=== PATIENT | male | born 1995 | race Caucasian/White ===

== ENCOUNTER 2019-11-11 12:01 | Observation (INO) ==
[2019-11-11] MEDS ORDERED: SODIUM CHLORIDE 0.9% 1000ML 1,000 ML IV SCH (12:30)
[2019-11-11 13:11] LABS: Basophils # (auto) 0.02 K/uL (0-0.2); Basophils % (auto) 0.4 %; Eosinophils # (auto) 0.06 K/uL (0-0.5); Eosinophils % (auto) 1.2 %; Hematocrit (blood only) 35.5 % (42-52); Hemoglobin 11.9 g/dL (14.0-18.0); Immature Granulocytes # (auto) 0.01 K/uL (0.00-0.02); Immature Granulocytes % (auto) 0.2 %; Lymphocytes # (auto) 1.73 K/uL (1.2-3.4); Lymphocytes % (auto) 35.9 %; Mean Corpuscular Hemoglobin 30.1 pg (25-34); Mean Corpuscular Hgb Conc 33.5 g/dL (32-36); Mean Corpuscular Volume 89.9 fL (80-100); Mean Platelet Volume 11.1 fL (7.4-10.4); Monocytes # (auto) 0.36 K/uL (0.11-0.59); Monocytes % (auto) 7.5 %; Neutrophils # (auto) 2.64 K/uL (1.4-6.5); Neutrophils % (auto) 54.8 %; Platelet Count 213 K/uL (130-400); RDW Coefficient of Variation 12.8 % (11.5-14.5); RDW Standard Deviation 41.5 fL (36.4-46.3); Red Blood Count 3.95 M/uL (4.7-6.1); White Blood Count 4.82 K/uL (4.8-10.8)
[2019-11-11 13:23] LABS: Prothrombin Time 10.4 Seconds (9.0-12.0)
[2019-11-11] MEDS ORDERED: PANTOprazole 80 MG in DEXTROSE 5% 100 ML IV ONE (13:30)
[2019-11-11 13:31] LABS: Alanine Aminotransferase 24 U/L (12-78); Albumin Level 3.6 gm/dl (3.4-5.0); Aspartate Aminotransferase 6 U/L (15-37); BUN Creatinine Ratio 21.3 (10-20); Blood Urea Nitrogen 21 mg/dl (7-18); Calcium 8.6 mg/dl (8.5-10.1); Carbon Dioxide 29 mmol/L (21-32); Chloride 108 mmol/L (98-107); Creatinine Clr Calc Pharmacy 107.8 ml/min; Est GFR (African American) 127.9; Est GFR (Non-African American) 110.4; Glucose 94 mg/dl (70-99); Potassium 4.2 mmol/L (3.5-5.1); Sodium 141 mmol/L (136-145)
[2019-11-11 13:36] LABS: Albumin Globulin Ratio 1.2 (0.9-2); Alkaline Phosphatase 63 U/L (45-117); Bilirubin,Total 0.5 mg/dl (0.2-1); Globulin 2.9 gm/dl (2.5-4.0); Total Protein 6.5 gm/dl (6.4-8.2); Troponin I < 0.015 ng/ml (0-0.045)
--- NOTE | 2019-11-11 13:41 | History & Physical Report ---
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 Found to have hemoccult positive stool in the ER. Hgb=11.9, Hct=35.5. Patient is afebrile, hemodynamically stable and doing well with no complaints. -Observation to medical floor with telemetry monitoring -NPO -Maintain two large bore IVs -Check orthostatic VS x 1 -CBC q 8 hours, transfuse for active bleed, symptomatic anemia or Hgb < 7 -Protonix bolus and gtt initiated in ER, will continue -NSS at 80mL/hr x 2 liters -GI consultation appreciated F/E/N - NSS at 80mL/hr x 2 liters, electrolytes normal, NPO for now Ppx - Protonix bolus and gtt. Low risk for DVT, no ppx indicated Code - Full per discussion with patient Disposition - Observation to medical floor with telemetry History of Present Illness Chief Complaint: Dark, tarry stools Primary Care Provider: NO PCP Zheng Adorno is a pleasant 24yo C male with no significant past medical or surgical history. He developed abdominal pain, bloating and gas approximately two weeks ago. He was seen at [facility] and given a prescription for Protonix. Over the last 2-3 days he developed body aches, weakness, intermittent dizziness, SOB and black/tarry stools. He had some nausea with one episode of non-bloody/non-bilious emesis. He returned to [facility] and was subsequently sent to the ER. Otherwise, patient denies fevers, chest pain, diarrhea, dysuria. Afebrile, hemodynamically stable in ER. FOBT performed and found to be positive for occult blood. ER Course: Protonix bolus and drip, NSS x 1 liter Allergies Allergy/AdvReac Type Severity Reaction Status Date / Time milk Allergy Intermediate diarrhea ~ Unverified 11/11/19 13:44 churning stomach Home Medications Home Medications Medication Instructions Recorded Confirmed Type pantoprazole 40 mg PO QAM 11/11/19 11/11/19 History Past Med/Surg History Medical History No pertinent past medical history Surgical History No pertinent past surgical history Family History (Updated 11/11/19 @ 15:12 by Miladis Apodaca DO) Other No significant family history Social History (Updated 11/11/19 @ 15:12 by Miladis Apodaca DO) Preferred Language: Syriac Communication Ability: Effective Unclaimed Property Officer Required: No Beliefs That Will Affect Care: None Current Living Situation: Significant Other current occupational status: student Other Information That Helps Us Care for You: No Feels Safe at Home: Yes Safety Concerns: Feels Safe At This Time Smoking Status: Never smoker Hx Alcohol Use: Yes Alcohol type: beer and hard liquor Hx Substance Use: No Review of Systems Review of Systems: All systems reviewed & are unremarkable except as noted in HPI & below +epigastric discomfort +abdominal bloating Physical Exam Physical Exam: General: patient resting comfortably, NAD, non-toxic in appearance, AA&O x 4 Skin: warm, dry, intact, no rashes or lesions HEENT: NC/AT, PERRL, EOMI, anicteric sclera, conjunctiva without injection, external ear normal to inspection and nontender, nares patent, moist mucus membranes, dentition intact, no oropharyngeal lesions, neck supple, trachea midline, no LAD, no thyromegaly, no JVD Heart: +S1/S2, regular, no m/r/g Lungs: equal air entry bilaterally, no rales/rhonchi/wheezes Abd: +BS, soft, ND, +epigastric discomfort, no rebound/guarding/peritoneal signs, no masses/organomegaly/ascites Ext: warm, 2+ pulses in UE/LE bilaterally, no clubbing/cyanosis or edema Neuro: nonfocal, patient AA&O x 4, speech intact, no facial droop, moving all extremities on command with equal strength 5/5 Results & Data Vital Signs (Past 12 Hours) Vital Signs Temp Pulse Pulse Resp BP BP Pulse Ox 11/11/19 12:36 86 20 127/79 100 11/11/19 12:35 100 11/11/19 12:04 36.9 C 93 H 16 116/75 100 Laboratory Results Lab Results 11/11/19 11/11/19 11/11/19 Range/Units 12:38 12:38 12:38 WBC 4.82 (4.8-10.8) K/uL RBC 3.95 L (4.7-6.1) M/uL Hgb 11.9 L (14.0-18.0) g/dL Hct 35.5 L (42-52) % MCV 89.9 (80-100) fL MCH 30.1 (25-34) pg MCHC 33.5 (32-36) g/dL RDW Std Deviation 41.5 (36.4-46.3) fL RDW Coeff of Elder 12.8 (11.5-14.5) % Plt Count 213 (130-400) K/uL MPV 11.1 H (7.4-10.4) fL Immature Gran % (Auto) 0.2 % Neut % (Auto) 54.8 % Lymph % (Auto) 35.9 % [place] % (Auto) 7.5 % Eos % (Auto) 1.2 % Baso % (Auto) 0.4 % Immature Gran # (Auto) 0.01 (0.00-0.02) K/uL Neut # (Auto) 2.64 (1.4-6.5) K/uL Lymph # (Auto) 1.73 (1.2-3.4) K/uL [place] # (Auto) 0.36 (0.11-0.59) K/uL Eos # (Auto) 0.06 (0-0.5) K/uL Baso # (Auto) 0.02 (0-0.2) K/uL PT 10.4 (9.0-12.0) Seconds INR 1.0 (0.9-1.1) APTT 27.0 (21.0-31.0) Seconds PTT Ratio 1.0 Sodium 141 (136-145) mmol/L Potassium 4.2 (3.5-5.1) mmol/L Chloride 108 H (98-107) mmol/L Carbon Dioxide 29 (21-32) mmol/L Anion Gap 4.0 (3-11) BUN 21 H (7-18) mg/dl Creatinine 0.97 (0.6-1.4) mg/dl Est Cr Clr Drug Dosing 107.8 ml/min Est GFR ( Amer) 127.9 Est GFR (Non-Af Amer) 110.4 BUN/Creatinine Ratio 21.3 H (10-20) Glucose 94 (70-99) mg/dl Calcium 8.6 (8.5-10.1) mg/dl Total Bilirubin 0.5 (0.2-1) mg/dl AST 6 L (15-37) U/L ALT 24 (12-78) U/L Alkaline Phosphatase 63 (45-117) U/L Troponin I < 0.015 (0-0.045) ng/ml Total Protein 6.5 (6.4-8.2) gm/dl Albumin 3.6 (3.4-5.0) gm/dl Globulin 2.9 (2.5-4.0) gm/dl Albumin/Globulin Ratio 1.2 (0.9-2) Blood Type Antibody Screen 11/11/19 Range/Units 12:38 WBC (4.8-10.8) K/uL RBC (4.7-6.1) M/uL Hgb (14.0-18.0) g/dL Hct (42-52) % MCV (80-100) fL MCH (25-34) pg MCHC (32-36) g/dL RDW Std Deviation (36.4-46.3) fL RDW Coeff of Elder (11.5-14.5) % Plt Count (130-400) K/uL MPV (7.4-10.4) fL Immature Gran % (Auto) % Neut % (Auto) % Lymph % (Auto) % [place] % (Auto) % Eos % (Auto) % Baso % (Auto) % Immature Gran # (Auto) (0.00-0.02) K/uL Neut # (Auto) (1.4-6.5) K/uL Lymph # (Auto) (1.2-3.4) K/uL [place] # (Auto) (0.11-0.59) K/uL Eos # (Auto) (0-0.5) K/uL Baso # (Auto) (0-0.2) K/uL PT (9.0-12.0) Seconds INR (0.9-1.1) APTT (21.0-31.0) Seconds PTT Ratio Sodium (136-145) mmol/L Potassium (3.5-5.1) mmol/L Chloride (98-107) mmol/L Carbon Dioxide (21-32) mmol/L Anion Gap (3-11) BUN (7-18) mg/dl Creatinine (0.6-1.4) mg/dl Est Cr Clr Drug Dosing ml/min Est GFR ( Amer) Est GFR (Non-Af Amer) BUN/Creatinine Ratio (10-20) Glucose (70-99) mg/dl Calcium (8.5-10.1) mg/dl Total Bilirubin (0.2-1) mg/dl AST (15-37) U/L ALT (12-78) U/L Alkaline Phosphatase (45-117) U/L Troponin I (0-0.045) ng/ml Total Protein (6.4-8.2) gm/dl Albumin (3.4-5.0) gm/dl Globulin (2.5-4.0) gm/dl Albumin/Globulin Ratio (0.9-2) Blood Type O Negative Antibody Screen NEGATIVE ECG Additional Comments: The study shows NSR at 78bpm, normal axis and intervals, PA=398, QRS = 98, WIj=837. no acute ischemic changes Code Status & VTE Plan Code Status Full VTE Prophylaxis Plan VTE Prophylaxis will be ordered: No Reason for no VTE drug order: Treatment not indicated Reason for no VTE mechanical prophylaxis: Treatment not indicated PG Care Time/CCT Total # of Minutes Spent Total Time Spent with Patient: Total time spent is greater than 50% in coordination of care (as documented) at patient's floor/unit and/or counseling patient: Coding Level of Care Code 17318 Initial Inpt Care Lvl 2 Diagnoses UGIB (upper gastrointestinal bleed) K92.2
--- NOTE | 2019-11-11 14:44 | Emergency Department Note ---
Entered by Juana Thornton acting as a scribe for Ray Gilmore MD History of Present Illness General Chief complaint: Rectal Bleed Stated complaint: RECTAL BLEEDING Time Seen by Provider: 11/11/19 12:17 Source: patient History of Present Illness Onset (ago): day(s) 1 Location: abdomen (black stool) Pain Consistency: + other (episode) Maximum Pain Intensity: 0 Quality: + other (black stool) Relieved By: not by medication (antacids) Associated symptoms: + nausea/vomiting and + other (abdominal pain, black stool) Treatments prior to arrival: none The patient is a 24 year old male presenting to the Emergency Department complaining of an episode of black stool occurring 1 day ago. The patient reports that he had a bowel movement 1 day ago that was black in color. He states that he went to [facility] [employer] UP [employer]PER[employer] and was told that his stool did have blood in it. He explains that he began having abdominal pain 3 weeks ago but that it has resolved for the most part. He notes that he went to [facility] and [facility] for his abdominal pain and was prescribed antacids. He adds that antacids didnt improve his pain. The patient reports that he vomited once 3 days ago. He states that he doesnt know if there blood in emesis as he ate red cereal prior. 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 He denies Ibuprofen use, binge drinking alcohol and any pertinent medical or surgical history. Home Medications Home Medications Medication Instructions Recorded Confirmed Type pantoprazole 40 mg PO BID 30 Days #60 tab 11/14/19 Rx Allergies Allergy/AdvReac Type Severity Reaction Status Date / Time milk Allergy Intermediate diarrhea ~ Unverified 11/11/19 13:44 churning stomach Past Med/Surg History Medical History No pertinent past medical history Surgical History No pertinent past surgical history Family History Other No significant family history Social History Preferred Language: Kiswahili Communication Ability: Effective Facility Attendant Required: No Beliefs That Will Affect Care: None Current Living Situation: Significant Other current occupational status: student Feels Safe at Home: Yes Smoking Status: Never smoker Hx Alcohol Use: Yes Alcohol type: beer and hard liquor Hx Substance Use: No Review of Systems See HPI for pertinent positives & negatives. and A total of 10 systems reviewed and were otherwise negative Physical Exam Vital Signs Vital Signs - 24 hr 11/11/19 12:04 11/11/19 12:33 11/11/19 12:35 Temperature 36.9 C Temperature Source Oral Pulse Rate 93 H 87 Pulse Rate [Right Finger] Pulse Rate from SpO2 Sensor 86 Respiratory Rate 16 21 Blood Pressure 116/75 127/79 Blood Pressure [Right Arm] Blood Pressure Mean 88 82 Blood Pressure Mean [Right Arm] Pulse Oximetry 100 100 100 Oxygen Delivery Method Room Air Sepsis Recent Fever Within 48 Hours No Sepsis New/Unexplained Change in Mental Status No Sepsis Action Taken by Nursing No Action Required 11/11/19 12:36 11/11/19 13:00 11/11/19 13:30 Temperature Temperature Source Pulse Rate 78 91 H Pulse Rate [Right Finger] 86 Pulse Rate from SpO2 Sensor 77 87 Respiratory Rate 20 26 H 23 Blood Pressure 113/73 119/72 Blood Pressure [Right Arm] 127/79 Blood Pressure Mean 84 82 Blood Pressure Mean [Right Arm] 95 Pulse Oximetry 100 100 100 Oxygen Delivery Method Room Air Sepsis Recent Fever Within 48 Hours Sepsis New/Unexplained Change in Mental Status Sepsis Action Taken by Nursing GENERAL: Awake, alert, well-appearing, in no acute distress HENT: Normocephalic, atraumatic. Oropharynx unremarkable. EYES: Normal conjunctiva. Sclera non-icteric. NECK: Supple. No nuchal rigidity. FROM. No JVD. RESPIRATORY: Clear to auscultation. CARDIAC: Regular rate, normal rhythm. Extremities warm and well perfused. Pulses equal. ABDOMEN: Soft, non-distended. No tenderness to palpation. No rebound or guarding. No masses. RECTAL: Deferred. MUSCULOSKELETAL: Chest examination reveals no tenderness. The back is symmetrical on inspection without obvious abnormality. There is no CVA tenderness to palpation. No joint edema. LOWER EXTREMITIES: Calves are equal size bilaterally and non-tender. No edema. No discoloration. NEURO: Normal sensorium. No sensory or motor deficits noted. SKIN: No rash or jaundice noted. Course Course 1224: The patient was evaluated in room B4B, and a complete history and physical examination were performed. 1327: I discussed the patients case with Dr. Paulie SOTO hospitalist. She will evaluate the patient for further management. 1332: I updated the patient at this time. Administered Medications Discontinued Medications Fentanyl Citrate (Fentanyl Citrate) Confirm Administered Dose 100 mcg .ROUTE .STK-MED ONE Stop: 11/12/19 10:35 Last Admin: 11/12/19 12:58 Dose: Not Given Documented by: [id number] Sodium Chloride (Nss 1000ml) 1,000 mls @ 100 mls/hr IV .Q10H ROME Stop: 11/11/19 22:29 Last Infusion: 11/11/19 15:00 Dose: 0 mls/hr Documented by: [id number] Admin: 11/11/19 12:50 Dose: 100 mls/hr Documented by: [id number] Pantoprazole Sodium 80 mg/ (Dextrose) 120 mls @ 480 mls/hr IV NOW ONE Stop: 11/11/19 13:44 Last Infusion: 11/11/19 14:14 Dose: 0 mls/hr Documented by: [id number] Admin: 11/11/19 13:47 Dose: 480 mls/hr Documented by: [id number] Pantoprazole Sodium 40 mg/ (Dextrose) 100 mls @ 20 mls/hr IV Q5H ROME Stop: 11/14/19 13:30 Last Infusion: 11/14/19 15:00 Dose: 0 mls/hr Documented by: [id number] Admin: 11/14/19 11:29 Dose: 20 mls/hr Documented by: [id number] Infusion: 11/14/19 11:29 Dose: 20 mls/hr Documented by: [id number] Admin: 11/14/19 07:28 Dose: 20 mls/hr Documented by: [id number] Infusion: 11/14/19 07:16 Dose: 20 mls/hr Documented by: [id number] Admin: 11/14/19 02:16 Dose: 20 mls/hr Documented by: [id number] Infusion: 11/14/19 02:16 Dose: 0 mls/hr Documented by: [id number] Admin: 11/13/19 21:25 Dose: 20 mls/hr Documented by: [id number] Infusion: 11/13/19 21:05 Dose: 20 mls/hr Documented by: [id number] Admin: 11/13/19 16:05 Dose: 20 mls/hr Documented by: [id number] Infusion: 11/13/19 16:05 Dose: 20 mls/hr Documented by: [id number] Admin: 11/13/19 11:14 Dose: 20 mls/hr Documented by: [id number] Infusion: 11/13/19 10:52 Dose: 20 mls/hr Documented by: [id number] Admin: 11/13/19 05:52 Dose: 20 mls/hr Documented by: [id number] Infusion: 11/13/19 05:50 Dose: 20 mls/hr Documented by: [id number] Admin: 11/13/19 00:50 Dose: 20 mls/hr Documented by: [id number] Infusion: 11/13/19 00:50 Dose: 20 mls/hr Documented by: [id number] Admin: 11/12/19 19:56 Dose: 20 mls/hr Documented by: [id number] Infusion: 11/12/19 19:56 Dose: 20 mls/hr Documented by: [id number] Admin: 11/12/19 15:12 Dose: 20 mls/hr Documented by: [id number] Infusion: 11/12/19 14:45 Dose: 20 mls/hr Documented by: [id number] Admin: 11/12/19 09:45 Dose: 20 mls/hr Documented by: [id number] Infusion: 11/12/19 09:40 Dose: 20 mls/hr Documented by: [id number] Admin: 11/12/19 04:40 Dose: 20 mls/hr Documented by: [id number] Infusion: 11/12/19 04:40 Dose: 20 mls/hr Documented by: [id number] Admin: 11/11/19 23:48 Dose: 20 mls/hr Documented by: [id number] Infusion: 11/11/19 23:48 Dose: 20 mls/hr Documented by: [id number] Admin: 11/11/19 20:29 Dose: 20 mls/hr Documented by: [id number] Infusion: 11/11/19 20:11 Dose: 20 mls/hr Documented by: [id number] Admin: 11/11/19 15:11 Dose: 20 mls/hr Documented by: [id number] Sodium Chloride (Nss 1000ml) 1,000 mls @ 80 mls/hr IV .[id number] ROME Stop: 11/12/19 15:59 Last Infusion: 11/12/19 18:55 Dose: 0 mls/hr Documented by: [id number] Admin: 11/12/19 04:41 Dose: 80 mls/hr Documented by: [id number] Infusion: 11/12/19 04:35 Dose: 80 mls/hr Documented by: [id number] Admin: 11/11/19 16:05 Dose: 80 mls/hr Documented by: [id number] Polyethylene Glycol (Miralax Powder Packet) 17 gm PO ONE STA Stop: 11/14/19 12:13 Last Admin: 11/14/19 12:35 Dose: 17 gm Documented by: [id number] Propofol (Diprivan) Confirm Administered Dose 400 mg IV .STK-MED ONE Stop: 11/12/19 12:33 Last Admin: 11/12/19 12:58 Dose: Not Given Documented by: [id number] Medical Decision Making Differential Diagnosis Differential diagnosis: Etiologies such as diverticulosis, AVM, coagulopathy, colitis, inflammatory bowel disease, malignancy, Claire-Stewart tear, esophagitis, peptic ulcer disease, variceal bleed, gastritis, epistaxis, fissure, hemorrhoids, aswell as others were entertained. Medical Records Attestation: I reviewed the patient's medical records. Home Medications Current Medication List: was personally reviewed by me Laboratory Data Attestation: I reviewed the patient's lab results. Result diagrams: 11/14/19 06:10 11/14/19 06:10 Lab Results 11/11/19 11/11/19 11/11/19 Range/Units 12:38 12:38 12:38 WBC 4.82 (4.8-10.8) K/uL RBC 3.95 L (4.7-6.1) M/uL Hgb 11.9 L (14.0-18.0) g/dL Hct 35.5 L (42-52) % MCV 89.9 (80-100) fL MCH 30.1 (25-34) pg MCHC 33.5 (32-36) g/dL RDW Std Deviation 41.5 (36.4-46.3) fL RDW Coeff of Elder 12.8 (11.5-14.5) % Plt Count 213 (130-400) K/uL MPV 11.1 H (7.4-10.4) fL Immature Gran % (Auto) 0.2 % Neut % (Auto) 54.8 % Lymph % (Auto) 35.9 % [place] % (Auto) 7.5 % Eos % (Auto) 1.2 % Baso % (Auto) 0.4 % Immature Gran # (Auto) 0.01 (0.00-0.02) K/uL Neut # (Auto) 2.64 (1.4-6.5) K/uL Lymph # (Auto) 1.73 (1.2-3.4) K/uL [place] # (Auto) 0.36 (0.11-0.59) K/uL Eos # (Auto) 0.06 (0-0.5) K/uL Baso # (Auto) 0.02 (0-0.2) K/uL PT 10.4 (9.0-12.0) Seconds INR 1.0 (0.9-1.1) APTT 27.0 (21.0-31.0) Seconds PTT Ratio 1.0 Sodium 141 (136-145) mmol/L Potassium 4.2 (3.5-5.1) mmol/L Chloride 108 H (98-107) mmol/L Carbon Dioxide 29 (21-32) mmol/L Anion Gap 4.0 (3-11) BUN 21 H (7-18) mg/dl Creatinine 0.97 (0.6-1.4) mg/dl Est Cr Clr Drug Dosing 107.8 ml/min Est GFR ( Amer) 127.9 Est GFR (Non-Af Amer) 110.4 BUN/Creatinine Ratio 21.3 H (10-20) Glucose 94 (70-99) mg/dl Calcium 8.6 (8.5-10.1) mg/dl Total Bilirubin 0.5 (0.2-1) mg/dl AST 6 L (15-37) U/L ALT 24 (12-78) U/L Alkaline Phosphatase 63 (45-117) U/L Troponin I < 0.015 (0-0.045) ng/ml Total Protein 6.5 (6.4-8.2) gm/dl Albumin 3.6 (3.4-5.0) gm/dl Globulin 2.9 (2.5-4.0) gm/dl Albumin/Globulin Ratio 1.2 (0.9-2) Blood Type Antibody Screen 11/11/19 11/11/19 11/12/19 Range/Units 12:38 19:45 03:48 WBC 5.82 4.88 (4.8-10.8) K/uL RBC 3.43 L 3.37 L (4.7-6.1) M/uL Hgb 10.5 L 10.1 L (14.0-18.0) g/dL Hct 30.5 L 30.6 L (42-52) % MCV 88.9 90.8 (80-100) fL MCH 30.6 30.0 (25-34) pg MCHC 34.4 33.0 (32-36) g/dL RDW Std Deviation 41.9 42.7 (36.4-46.3) fL RDW Coeff of Elder 13.0 13.0 (11.5-14.5) % Plt Count 176 181 (130-400) K/uL MPV 10.5 H 10.8 H (7.4-10.4) fL Immature Gran % (Auto) 0.2 0.0 % Neut % (Auto) 60.3 44.0 % Lymph % (Auto) 31.1 46.1 % [place] % (Auto) 7.2 7.4 % Eos % (Auto) 1.0 2.3 % Baso % (Auto) 0.2 0.2 % Immature Gran # (Auto) 0.01 0.00 (0.00-0.02) K/uL Neut # (Auto) 3.51 2.15 (1.4-6.5) K/uL Lymph # (Auto) 1.81 2.25 (1.2-3.4) K/uL [place] # (Auto) 0.42 0.36 (0.11-0.59) K/uL Eos # (Auto) 0.06 0.11 (0-0.5) K/uL Baso # (Auto) 0.01 0.01 (0-0.2) K/uL PT (9.0-12.0) Seconds INR (0.9-1.1) APTT (21.0-31.0) Seconds PTT Ratio Sodium (136-145) mmol/L Potassium (3.5-5.1) mmol/L Chloride (98-107) mmol/L Carbon Dioxide (21-32) mmol/L Anion Gap (3-11) BUN (7-18) mg/dl Creatinine (0.6-1.4) mg/dl Est Cr Clr Drug Dosing ml/min Est GFR ( Amer) Est GFR (Non-Af Amer) BUN/Creatinine Ratio (10-20) Glucose (70-99) mg/dl Calcium (8.5-10.1) mg/dl Total Bilirubin (0.2-1) mg/dl AST (15-37) U/L ALT (12-78) U/L Alkaline Phosphatase (45-117) U/L Troponin I (0-0.045) ng/ml Total Protein (6.4-8.2) gm/dl Albumin (3.4-5.0) gm/dl Globulin (2.5-4.0) gm/dl Albumin/Globulin Ratio (0.9-2) Blood Type O Negative Antibody Screen NEGATIVE 11/12/19 11/12/19 Range/Units 03:48 12:10 WBC 7.75 (4.8-10.8) K/uL RBC 3.36 L (4.7-6.1) M/uL Hgb 10.2 L (14.0-18.0) g/dL Hct 30.7 L (42-52) % MCV 91.4 (80-100) fL MCH 30.4 (25-34) pg MCHC 33.2 (32-36) g/dL RDW Std Deviation 43.2 (36.4-46.3) fL RDW Coeff of Elder 13.0 (11.5-14.5) % Plt Count 170 (130-400) K/uL MPV 10.1 (7.4-10.4) fL Immature Gran % (Auto) 0.1 % Neut % (Auto) 76.8 % Lymph % (Auto) 15.5 % [place] % (Auto) 7.0 % Eos % (Auto) 0.5 % Baso % (Auto) 0.1 % Immature Gran # (Auto) 0.01 (0.00-0.02) K/uL Neut # (Auto) 5.95 (1.4-6.5) K/uL Lymph # (Auto) 1.20 (1.2-3.4) K/uL [place] # (Auto) 0.54 (0.11-0.59) K/uL Eos # (Auto) 0.04 (0-0.5) K/uL Baso # (Auto) 0.01 (0-0.2) K/uL PT (9.0-12.0) Seconds INR (0.9-1.1) APTT (21.0-31.0) Seconds PTT Ratio Sodium 141 (136-145) mmol/L Potassium 4.1 (3.5-5.1) mmol/L Chloride 111 H (98-107) mmol/L Carbon Dioxide 29 (21-32) mmol/L Anion Gap 1.0 L (3-11) BUN 12 (7-18) mg/dl Creatinine 0.92 (0.6-1.4) mg/dl Est Cr Clr Drug Dosing 113.7 ml/min Est GFR ( Amer) 136.4 Est GFR (Non-Af Amer) 117.6 BUN/Creatinine Ratio 13.2 (10-20) Glucose 90 (70-99) mg/dl Calcium 8.0 L (8.5-10.1) mg/dl Total Bilirubin (0.2-1) mg/dl AST (15-37) U/L ALT (12-78) U/L Alkaline Phosphatase (45-117) U/L Troponin I (0-0.045) ng/ml Total Protein (6.4-8.2) gm/dl Albumin (3.4-5.0) gm/dl Globulin (2.5-4.0) gm/dl Albumin/Globulin Ratio (0.9-2) Blood Type Antibody Screen ECG Data Attestation: I personally reviewed and interpreted this ECG as follows: Indication: + weakness and + other (black stool) Rate (beats per minute): 78 Rhythm: + normal sinus ECG Intervals/blocks: + Normal QT-c (QT-c 412. ) ECG [place]: + Normal ECG ST segments: no ST depression and no ST elevation ECG Findings: no PACs and no PVCs Blood Pressure Blood Pressure Findings: Elevated blood pressure Blood Pressure Disposition: further management by hospitalist [facility] Narrative This is a 24-year-old male who presents emergency department with melena. His hemoglobin was found to be 11. I did discuss the case with the hospitalist service who did agree to admit the patient. Patient was started on a Protonix bolus and drip here in the emergency department. Patient was in agreement with the treatment plan. I did offer to discuss this patient with his parents however the patient refused. Impression & Plan Melena, Acute blood loss anemia Discharge Plan Visit Data *Final* Discharge Date/Time: 11/11/19 14:18 Chief Complaint: Rectal Bleed Stated Complaint: RECTAL BLEEDING ED Provider: Ray Gilmore Discharge Problem: Melena, Acute blood loss anemia Patient Disposition: Admitted As Inpatient Condition: Good Discharge Instructions Interventions: ED Discharge Assessment Last Done: 11/11/19 14:18 The scribe's documentation has been prepared under my direction and personally reviewed by me in its entirety. I confirm that the note above accurately reflects all work, treatment, procedures, and medical decision making performed by me.
[2019-11-11] MEDS ORDERED: ONDANSETRON INJ 2 MG/ML 2 ML VIAL IV PRN (15:00)
[2019-11-11] MEDS: PANTOprazole 40 MG in DEXTROSE 5% 100 ML IV SCH ×3 (15:11→23:48)
[2019-11-11] MEDS: SODIUM CHLORIDE 0.9% 1000ML 1,000 ML IV SCH (16:05)
[2019-11-11 19:56] LABS: Basophils # (auto) 0.01 K/uL (0-0.2); Basophils % (auto) 0.2 %; Eosinophils # (auto) 0.06 K/uL (0-0.5); Hematocrit (blood only) 30.5 % (42-52); Hemoglobin 10.5 g/dL (14.0-18.0); Immature Granulocytes # (auto) 0.01 K/uL (0.00-0.02); Immature Granulocytes % (auto) 0.2 %; Lymphocytes # (auto) 1.81 K/uL (1.2-3.4); Lymphocytes % (auto) 31.1 %; Mean Corpuscular Hemoglobin 30.6 pg (25-34); Mean Corpuscular Hgb Conc 34.4 g/dL (32-36); Mean Corpuscular Volume 88.9 fL (80-100); Mean Platelet Volume 10.5 fL (7.4-10.4); Monocytes # (auto) 0.42 K/uL (0.11-0.59); Monocytes % (auto) 7.2 %; Neutrophils # (auto) 3.51 K/uL (1.4-6.5); Neutrophils % (auto) 60.3 %; Platelet Count 176 K/uL (130-400); RDW Standard Deviation 41.9 fL (36.4-46.3); Red Blood Count 3.43 M/uL (4.7-6.1); White Blood Count 5.82 K/uL (4.8-10.8)
[2019-11-12 04:19] LABS: Basophils # (auto) 0.01 K/uL (0-0.2); Basophils % (auto) 0.2 %; Eosinophils # (auto) 0.11 K/uL (0-0.5); Eosinophils % (auto) 2.3 %; Hematocrit (blood only) 30.6 % (42-52); Hemoglobin 10.1 g/dL (14.0-18.0); Lymphocytes # (auto) 2.25 K/uL (1.2-3.4); Lymphocytes % (auto) 46.1 %; Mean Corpuscular Volume 90.8 fL (80-100); Mean Platelet Volume 10.8 fL (7.4-10.4); Monocytes # (auto) 0.36 K/uL (0.11-0.59); Monocytes % (auto) 7.4 %; Neutrophils # (auto) 2.15 K/uL (1.4-6.5); Platelet Count 181 K/uL (130-400); RDW Standard Deviation 42.7 fL (36.4-46.3); Red Blood Count 3.37 M/uL (4.7-6.1); White Blood Count 4.88 K/uL (4.8-10.8)
[2019-11-12] MEDS: PANTOprazole 40 MG in DEXTROSE 5% 100 ML IV SCH ×4 (04:40→19:56)
[2019-11-12] MEDS: SODIUM CHLORIDE 0.9% 1000ML 1,000 ML IV SCH (04:41)
[2019-11-12 04:45] LABS: BUN Creatinine Ratio 13.2 (10-20); Creatinine Clr Calc Pharmacy 113.7 ml/min; Est GFR (African American) 136.4; Est GFR (Non-African American) 117.6; Potassium 4.1 mmol/L (3.5-5.1)
--- NOTE | 2019-11-12 09:15 | Gastrointestinal Consultation ---
Date of Consultation November 12, 2019 Assessment & Plan (1) Melena: Presumably 2/2 upper GI bleeding. H/H 10.1/30.6. -Keep NPO for EGD today. -Can continue IV Protonix gtt at present; pending results of EGD, will determine if patient can be converted to BID PPI therapy. -Follow H/H. Continue monitoring for further s/s of active GI bleeding. -Avoid NSAIDs. -Supportive care per primary team. Present on Admission?: Yes (2) Epigastric pain: See melena plan. Thank you for allowing us to participate in the care of this patient. If you should have any further questions or concerns, do not hesitate to contact us at [email or web address] [phone] or [phone]. Present on Admission?: Yes Supervising Physician Co-Signing Physician Notes Agree with NABEEL Spears as above Abd: Soft, NT, ND, +BS Continue current therapy Proceed with EGD now. History of Present Illness Reason for Consultation: Upper GI bleed, epigastric pain Attending Physician: Sharmin North MD History of Present Illness Zheng Adorno is a 24 yo male who presented to [facility] ED after experiencing several weeks of epigastric pain and a new onset of black tarry stool. The patient has no significant medical or surgical history. He denies family history of GI issues. He is a student at [employer] and reports he was in his usual state of health until 3 weeks ago. He developed epigastric abdominal pain and was reportedly seen at [facility]. He reports that he was told he had gas & bloating. His symptoms persisted, so he saw a provider at [facility]. He describes his pain as ranging from an aching to a sharp pain. This was worsened with spicy food. He reports that at its most severe he rates it as a 7/10. He reports he was started on Protonix on 11/07/2019 and was advised to notify them if he developed alarming or worsening symptoms. He reports that 2 days ago, he began noticing dark, tarry stools. He reports he notified [facility] and was asked to present to the ED. Upon presentation to the ED, his H/H was initially 11.9/35.5. After fluids overnight, it does appear to have decreased to 10.1/30.6. At present, he is on an IV PPI drip after receiving an initial bolus. He reports he is comfortable at present with 3/10 discomfort. He has not had further bowel movements since 11/10/2019. He denies NSAID use. He does not take any other medication. He avoids milk products as they trigger diarrhea, but this has been an ongoing issue. He has been kept NPO and is agreeable to endoscopic evaluation. Allergies Allergy/AdvReac Type Severity Reaction Status Date / Time milk Allergy Intermediate diarrhea ~ Unverified 11/11/19 13:44 churning stomach Home Medications Home Medications Medication Instructions Recorded Confirmed Type pantoprazole 40 mg PO QAM 11/11/19 11/11/19 History Patient History Medical History No pertinent past medical history Surgical History No pertinent past surgical history Family History Other No significant family history Social History (Updated 11/11/19 @ 15:12 by Miladis Apodaca DO) Preferred Language: Syrian Communication Ability: Effective Trolley Worker Required: No Beliefs That Will Affect Care: None Current Living Situation: Significant Other current occupational status: student Other Information That Helps Us Care for You: No Feels Safe at Home: Yes Safety Concerns: Feels Safe At This Time Smoking Status: Never smoker Hx Alcohol Use: Yes Alcohol type: beer and hard liquor Hx Substance Use: No Review of Systems Constitutional: no fever and no chills Eyes: no acute issues Ear, Nose, Mouth, Throat: no acute issues Respiratory: no cough Cardiovascular: no chest pain Gastrointestinal: + abdominal pain, + bloating and + melena; no heartburn, no dysphagia and no change in bowel habits Musculoskeletal: no acute issues Integumentary: no rash Neurologic: no dizziness Psychiatric: no acute complaints Endocrine: no fatigue Hematologic / Lymphatic: no acute issues Physical Exam Constitutional: WD/WN, vitals as above Eyes: PERRL, conjunctivae normal, anicteric sclerae ENMT: external ear and nose normal, oropharynx normal Neck: normal visual inspection Respiratory: normal respiratory effort, lungs clear to auscultation Cardiovascular: RRR, no murmur, no edema Gastrointestinal (Abdomen): normal bowel sounds, soft, nontender, no hepatosplenomegaly Musculoskeletal: no cyanosis or clubbing, extremities motor strength 5/5 Skin: no rashes, warm and dry Psychiatric: A+Ox3, euthymic affect Results & Data Vital Signs (Past 12 Hours) Vital Signs Temp Pulse Pulse Resp BP Pulse Ox 11/12/19 07:48 63 11/12/19 07:29 36.6 C 18 97 11/12/19 04:32 36.5 C 73 16 106/69 99 11/12/19 00:22 72 11/11/19 23:55 37.2 C 85 16 116/71 100 PG Care Time/CCT Total # of Minutes Spent Total Time Spent with Patient: Total time spent is greater than 50% in coordination of care (as documented) at patient's floor/unit and/or counseling patient: Coding Level of Care Code 29339 Inpt Consult Level 4 Diagnoses Melena K92.1 Epigastric pain R10.13
--- NOTE | 2019-11-12 10:12 | Anesthesiology Consultation ---
Date of Service November 12, 2019 Assessment & Plan (1) Encounter for pre-operative examination: Chart Review Chart Review: Acceptable Risk for Surgery and Patient NOT seen in Pre Admission Testing Consults Requested none History Surgery Operation Date: 11/12/19 10:35 Proposed Procedures p Esophagogastroduodenoscopy Dr Damian Pritchard Case, DO Height/Weight Height: 5 ft 6 in Weight: 71.4 kg Allergies Allergy/AdvReac Type Severity Reaction Status Date / Time milk Allergy Intermediate diarrhea ~ Unverified 11/11/19 13:44 churning stomach Medications Home Medications Medication Instructions Recorded Confirmed Last Taken pantoprazole 40 mg PO QAM 11/11/19 11/11/19 11/11/19 Active Medications Generic Name Dose Route Start Last Admin Trade Name Freq PRN Reason Stop Dose Admin Pantoprazole Sodium 40 mg/ 100 mls @ 20 mls/hr 11/11/19 13:45 11/12/19 09:45 Dextrose IV 11/14/19 23:59 20 mls/hr Q5H ROME Administration Sodium Chloride 1,000 mls @ 80 mls/hr 11/11/19 15:00 11/12/19 04:41 Nss 1000ml IV 11/12/19 15:59 80 mls/hr .[id number] ROME Administration NPO Date Last Intake of Fluids: 11/12/19 Last Intake of Fluids Comment: SIPS/CHIPS Date Last Intake of Solids: 11/12/19 Last Intake of Solids Comment: 0900 Past Medical History Medical History No pertinent past medical history Past Family History Family History Other No significant family history Past Surgical History Surgical History No pertinent past surgical history Social History Smoking Status: Never smoker Hx Alcohol Use: Yes Alcohol type: beer and hard liquor alcohol intake frequency: a few times a month Hx Substance Use: No Physical Exam Vital Signs Last Vital Signs Temp 36.6 C 11/12/19 07:29 Pulse 63 11/12/19 07:48 Resp 18 11/12/19 07:29 BP 106/69 11/12/19 04:32 Pulse Ox 97 11/12/19 07:29 Testing Laboratory Results 11/12/19 03:48 11/12/19 03:48 PT 10.4 Seconds (9.0-12.0) 11/11/19 12:38 INR 1.0 (0.9-1.1) 11/11/19 12:38 APTT 27.0 Seconds (21.0-31.0) 11/11/19 12:38 Blood Type O Negative 11/11/19 12:38 Antibody Screen NEGATIVE 11/11/19 12:38
[2019-11-12] MEDS ORDERED: ePHEDrine sulfate 50 MG/ML AMP IV PRN (10:14)
[2019-11-12] MEDS ORDERED: ATROPINE SULFATE 0.1 MG/ML 10ML SYR IV PRN (10:14)
[2019-11-12] MEDS ORDERED: fentaNYL citrate 100 MCG/2 ML VIAL ONE (10:34)
--- NOTE | 2019-11-12 11:10 | GI REPORT ---
Patient Name: Zheng Adorno Procedure Date: 11/12/2019 10:20 AM Date of : 1995 Admit Type: Inpatient Age: 24 Gender: Male Attending MD: Bertin Salgado DO Procedure: Upper GI endoscopy Providers: Bertin Salgado DO Referring MD: Bertin Salgado DO Indications: Acute post hemorrhagic anemia, Melena Medicines: Monitored Anesthesia Care Complications: No immediate complications. Estimated Blood Loss: Estimated blood loss: none. Procedure: Pre-Anesthesia Assessment: - Prior to the procedure, a History and Physical was performed, and patient medications and allergies were reviewed. The patient's tolerance of previous anesthesia was also reviewed. The risks and benefits of the procedure and the sedation options and risks were discussed with the patient. All questions were answered, and informed consent was obtained. Prior Anticoagulants: The patient has taken no previous anticoagulant or antiplatelet agents. ASA Grade Assessment: II - A patient with mild systemic disease. After reviewing the risks and benefits, the patient was deemed in satisfactory condition to undergo the procedure. After obtaining informed consent, the endoscope was passed under direct vision. Throughout the procedure, the patient's blood pressure, pulse, and oxygen saturations were monitored continuously. The Endoscope was introduced through the mouth, and advanced to the second part of duodenum. The upper GI endoscopy was accomplished without difficulty. The patient tolerated the procedure well. Findings: The esophagus was normal. One oozing cratered gastric ulcer with a visible vessel was found on the lesser curvature of the stomach. The lesion was 15 mm in largest dimension. Area was successfully injected with 3 mL of a 1:10,000 solution of epinephrine for hemostasis. Fulguration to ablate the lesion to prevent bleeding by heater probe was successful. Biopsies were taken with a cold forceps in the gastric antrum for Helicobacter pylori testing. The examined duodenum was normal. Impression: - Normal esophagus. - Oozing gastric ulcer with a visible vessel. Injected. Treated with a heater probe. - Normal examined duodenum. - Biopsies were taken with a cold forceps for Helicobacter pylori testing. Recommendation: - Resume previous diet. - Continue present medications, including protonix gtt for 72 hours. - Await pathology results. - Return to primary care physician as previously scheduled. Bertin Salgado DO 11/12/2019 11:10:16 AM This report has been signed electronically. Note Initiated On: 11/12/2019 10:20 AM Number of Addenda: 0 I attest to the content of the Intraoperative Record and orders documented therein, exceptions below {[id number]}
[2019-11-12 12:20] LABS: Basophils # (auto) 0.01 K/uL (0-0.2); Basophils % (auto) 0.1 %; Eosinophils # (auto) 0.04 K/uL (0-0.5); Eosinophils % (auto) 0.5 %; Hematocrit (blood only) 30.7 % (42-52); Hemoglobin 10.2 g/dL (14.0-18.0); Immature Granulocytes # (auto) 0.01 K/uL (0.00-0.02); Immature Granulocytes % (auto) 0.1 %; Lymphocytes % (auto) 15.5 %; Mean Corpuscular Hemoglobin 30.4 pg (25-34); Mean Corpuscular Hgb Conc 33.2 g/dL (32-36); Mean Corpuscular Volume 91.4 fL (80-100); Mean Platelet Volume 10.1 fL (7.4-10.4); Monocytes # (auto) 0.54 K/uL (0.11-0.59); Neutrophils # (auto) 5.95 K/uL (1.4-6.5); Neutrophils % (auto) 76.8 %; Platelet Count 170 K/uL (130-400); RDW Standard Deviation 43.2 fL (36.4-46.3); Red Blood Count 3.36 M/uL (4.7-6.1); White Blood Count 7.75 K/uL (4.8-10.8)
[2019-11-12] MEDS ORDERED: PROPOFOL IV EMULSION 10 MG/ML 20 ML VIAL IV ONE (12:32)
--- NOTE | 2019-11-12 15:07 | Anesthesiology Progress Note ---
Date of Service November 12, 2019 Anesthesia Post Procedure Vital Signs Vital Signs: Temp Pulse Pulse Resp BP Pulse Ox 11/12/19 12:42 36.7 C 59 L 18 123/77 99 11/12/19 11:32 78 18 102/63 100 11/12/19 11:17 78 18 117/63 97 11/12/19 11:02 78 16 100/43 L 96 11/12/19 10:16 37.1 C 86 16 140/77 99 11/12/19 07:48 63 11/12/19 07:29 36.6 C 18 97 11/12/19 04:32 36.5 C 73 16 106/69 99 11/12/19 00:22 72 11/11/19 23:55 37.2 C 85 16 116/71 100 11/11/19 19:36 36.9 C 85 18 119/68 97 Transfer of Care Handoff Completed per policy Notes Mental Status: alert / awake / arousable Patient Amnestic to Procedure: Yes Nausea / Vomiting: adequately controlled Pain: adequately controlled Airway Patency, RR, SpO2: stable & adequate BP & HR: stable & adequate Hydration State: stable & adequate Anesthetic Complications: no major complications apparent and Pt Satisfied with anesthetic care
--- NOTE | 2019-11-12 16:21 | Hospitalist Progress Note ---
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 Found to have hemoccult positive stool in the ER. Hgb=11.9, Hct=35.5. Afebrile, hemodynamically stable and doing well with no complaints. * GI Consultation-- appreciate input * EGD on 11/12 with 15mm oozing gastric ulcer found on lesser curvature of the stomach which was injected with epi, hemostasis with ablation of lesion by Dr. Salgado * Continue protonix gtt x 72 hours. Zofran prn * Clear liquid diet -- advanced to full liquids this evening * NSS @ 80 discontinued as patient taking adequate PO * Continue to monitor CBC * follow up biopsy performed for H. pylori testing * avoid all NSAIDs, ASA, EtOH (2) Acute blood loss anemia: * as above, secondary to GI bleed * now stabilized * follow CBC (3) Melena: * As above (4) Second degree atrioventricular block, Mobitz (type) I: * Initial EKG without abnormality * On telemetry, had what appears to be a Wenkebach around midnight -- repeated EKG with prolonged KS, evidence of 1st degree block. No history of syncope * KS interval shortens and has a 1:1 conduction with ambulation while on tele * Cardiology consult -- appreciate input * Lyme pending, no further evaluation needed as per Cardio if Lyme titer negative (5) DVT prophylaxis: * Low risk. Encourage ambulation, also with active GI bleeding, no chemical means of anticoagulation Dispo -- will need to continue protonix gtt 48-72 hours Supervising Physician Co-Signing Physician Notes PA Supervision Note: I did not personally see or examine the patient today, but I verified all kapadia points of DORIE Madden's assessment and plan with the following exceptions/additions: I discussed the case today with Dr. Salgado of GI and Dr. Hagan of Cardiology. Changes notated in A/P as above Subjective Patient evaluated this afternoon, as he was down having EGD this morning. Patient resting comfortably in bed, girlfriend and mother at bedside. States he has some abdominal discomfort, but no pain currently. States he had dark tarry stools x 2 on sunday. Had previously been started on protonix 40mg via [facility] on 11/07/19. Continues to have abdominal pain, n/v. No n/v today. Denies any ibuprofen or NSAID usage. Denies alcohol usage for the past two weeks. States that when he does drink he has 3-4 mixed drinks 1-2x/month. Denies drinking in excess. Discussed findings of EGD and need to continue protonix gtt. Discussed repeating EKG to see about any conduction abnormality. Denies any personal or family hx of WPW or other. Denies any at young age in family. Possibility to consult cardiology pending results of EKG. Patient agreeable. Patient and family's questions/concerns addressed. Agreeable to plan. Review of Systems Review of Systems: All systems reviewed & are unremarkable except as noted in HPI & below Constitutional: no fever and no chills Eyes: no diplopia and no spots in vision Ear, Nose, Mouth, Throat: no sore throat and no dysphagia Respiratory: no cough and no dyspnea Cardiovascular: no chest pain, no palpitations and no edema Gastrointestinal: no abdominal pain, no nausea and no vomiting Genitourinary: no dysuria and no urinary frequency Integumentary: no rash and no lesions Neurologic: no gait abnormality, no syncope and no headache(s) Physical Exam Constitutional: WD/WN, vitals as above Eyes: PERRL, conjunctivae normal, anicteric sclerae ENMT: external ear and nose normal, oropharynx normal Neck: trachea midline, no thyromegaly Respiratory: normal respiratory effort, lungs clear to auscultation Cardiovascular: RRR, no murmur, no edema Gastrointestinal (Abdomen): Inspection/Auscultation: normal bowel sounds Percussion/Palpation: + abdomen tender (minimally tender to palpation diffusely) and abdomen soft; no hepatosplenomegaly Musculoskeletal: no cyanosis or clubbing, extremities motor strength 5/5 Skin: no rashes, warm and dry Neurologic: PERRL, EOMI, accommodation nl, no face palsy, no dysarthria Psychiatric: A+Ox3, euthymic affect Lymphatic: no cervical or axillary lymphadenopathy Results & Data Vital Signs (Past 12 Hours) Vital Signs Temp Pulse Pulse Resp BP Pulse Ox 11/12/19 16:20 69 11/12/19 15:46 36.9 C 71 20 119/71 100 11/12/19 12:42 36.7 C 59 L 18 123/77 99 11/12/19 11:32 78 18 102/63 100 11/12/19 11:17 78 18 117/63 97 11/12/19 11:02 78 16 100/43 L 96 11/12/19 10:16 37.1 C 86 16 140/77 99 11/12/19 07:48 63 11/12/19 07:29 36.6 C 18 97 11/12/19 04:32 36.5 C 73 16 106/69 99 Laboratory Results 11/12/19 11/12/19 11/12/19 Range/Units 12:10 03:48 03:48 WBC 7.75 4.88 (4.8-10.8) K/uL RBC 3.36 L 3.37 L (4.7-6.1) M/uL Hgb 10.2 L 10.1 L (14.0-18.0) g/dL Hct 30.7 L 30.6 L (42-52) % MCV 91.4 90.8 (80-100) fL MCH 30.4 30.0 (25-34) pg MCHC 33.2 33.0 (32-36) g/dL RDW Std Deviation 43.2 42.7 (36.4-46.3) fL RDW Coeff of Elder 13.0 13.0 (11.5-14.5) % Plt Count 170 181 (130-400) K/uL MPV 10.1 10.8 H (7.4-10.4) fL Immature Gran % (Auto) 0.1 0.0 % Neut % (Auto) 76.8 44.0 % Lymph % (Auto) 15.5 46.1 % Bowman % (Auto) 7.0 7.4 % Eos % (Auto) 0.5 2.3 % Baso % (Auto) 0.1 0.2 % Immature Gran # (Auto) 0.01 0.00 (0.00-0.02) K/uL Neut # (Auto) 5.95 2.15 (1.4-6.5) K/uL Lymph # (Auto) 1.20 2.25 (1.2-3.4) K/uL Bowman # (Auto) 0.54 0.36 (0.11-0.59) K/uL Eos # (Auto) 0.04 0.11 (0-0.5) K/uL Baso # (Auto) 0.01 0.01 (0-0.2) K/uL Sodium 141 (136-145) mmol/L Potassium 4.1 (3.5-5.1) mmol/L Chloride 111 H (98-107) mmol/L Carbon Dioxide 29 (21-32) mmol/L Anion Gap 1.0 L (3-11) BUN 12 (7-18) mg/dl Creatinine 0.92 (0.6-1.4) mg/dl Est Cr Clr Drug Dosing 113.7 ml/min Est GFR ( Amer) 136.4 Est GFR (Non-Af Amer) 117.6 BUN/Creatinine Ratio 13.2 (10-20) Glucose 90 (70-99) mg/dl Calcium 8.0 L (8.5-10.1) mg/dl 11/11/19 Range/Units 19:45 WBC 5.82 (4.8-10.8) K/uL RBC 3.43 L (4.7-6.1) M/uL Hgb 10.5 L (14.0-18.0) g/dL Hct 30.5 L (42-52) % MCV 88.9 (80-100) fL MCH 30.6 (25-34) pg MCHC 34.4 (32-36) g/dL RDW Std Deviation 41.9 (36.4-46.3) fL RDW Coeff of Elder 13.0 (11.5-14.5) % Plt Count 176 (130-400) K/uL MPV 10.5 H (7.4-10.4) fL Immature Gran % (Auto) 0.2 % Neut % (Auto) 60.3 % Lymph % (Auto) 31.1 % Bowman % (Auto) 7.2 % Eos % (Auto) 1.0 % Baso % (Auto) 0.2 % Immature Gran # (Auto) 0.01 (0.00-0.02) K/uL Neut # (Auto) 3.51 (1.4-6.5) K/uL Lymph # (Auto) 1.81 (1.2-3.4) K/uL Bowman # (Auto) 0.42 (0.11-0.59) K/uL Eos # (Auto) 0.06 (0-0.5) K/uL Baso # (Auto) 0.01 (0-0.2) K/uL Sodium (136-145) mmol/L Potassium (3.5-5.1) mmol/L Chloride (98-107) mmol/L Carbon Dioxide (21-32) mmol/L Anion Gap (3-11) BUN (7-18) mg/dl Creatinine (0.6-1.4) mg/dl Est Cr Clr Drug Dosing ml/min Est GFR ( Amer) Est GFR (Non-Af Amer) BUN/Creatinine Ratio (10-20) Glucose (70-99) mg/dl Calcium (8.5-10.1) mg/dl PG Care Time/CCT Total # of Minutes Spent Total Time Spent with Patient: Total time spent is greater than 50% in coordination of care (as documented) at patient's floor/unit and/or counseling patient: Coding Level of Care Code 71796 Subseq Hosp Care Lvl 3 Diagnoses UGIB (upper gastrointestinal bleed) K92.2 Acute blood loss anemia D62 Melena K92.1 Second degree atrioventricular block, Mobitz (type) I I44.1 DVT prophylaxis Z29.9
--- NOTE | 2019-11-12 17:12 | Cardiology Consultation ---
Date of Consultation November 12, 2019 Assessment & Plan (1) Second degree atrioventricular block, Mobitz (type) I: I believe this form of heart block is likely physiologic. I agree this is somewhat unusual for a 24-year-old who is not more athletic. However, this is not represent a significant clinical concern at this point. It perhaps could be related to some increased vagal tone given his gastrointestinal symptoms, or possibly related to the sedation he was given earlier today. Clearly his conduction system or quite well and he conducts in a one-to-one fashion with a short [place] interval when ambulatory or more active. Except in the setting of significant anemia and gastrointestinal hemorrhage she does not endorse symptoms consistent with bradycardia or heart block such as dizziness, lightheadedness or syncope. He has normal exercise tolerance generally speaking. I do not believe this requires any additional evaluation. In the absence of new or persistent symptoms consistent with bradycardia I would not advocate any additional monitoring or cardiac evaluation. History of Present Illness Reason for Consultation: Heart block Requesting Physician: Mary Anne Attending Physician: Sharmin North MD History of Present Illness Patient is a 24-year-old gentleman without a significant past medical history who was admitted for epigastric discomfort and melena. Patient states that a few days prior to admission had been experience symptoms of some epigastric discomfort, dizziness and noted change in his stool. He did not endorse frequent use of nonsteroidal medication or significant alcohol abuse. He was admitted to the hospital and placed on telemetry. He was noted on telemetry to have episodes second-degree type 1 heart block. EKG also demonstrated first- degree heart block. Patient states that he did have some dizziness over the past few days. He did not endorse dizziness today. He has been most of his time in the hospital in bed. However, he was ambulatory to the bathroom and back without symptoms of dizziness or significant dyspnea. Prior to admission the patient had been an active individual. He is able to play racquet sports and ambulate around campus with a backpack. He does not endorse limiting symptoms of dyspnea or symptoms of chest pain. Generally does not have symptoms of dizziness or lightheadedness. He cannot ever recall suffering a syncopal episode. Allergies Allergy/AdvReac Type Severity Reaction Status Date / Time milk Allergy Intermediate diarrhea ~ Unverified 11/11/19 13:44 churning stomach Home Medications Home Medications Medication Instructions Recorded Confirmed Type pantoprazole 40 mg PO QAM 11/11/19 11/11/19 History Patient History Medical History No pertinent past medical history Surgical History No pertinent past surgical history Family History Other No significant family history Social History Preferred Language: Yi Communication Ability: Effective Quality Control Operator Required: No Beliefs That Will Affect Care: None Current Living Situation: Significant Other current occupational status: student Other Information That Helps Us Care for You: No Feels Safe at Home: Yes Safety Concerns: Feels Safe At This Time Smoking Status: Never smoker Hx Alcohol Use: Yes Alcohol type: beer and hard liquor Hx Substance Use: No Review of Systems Review of Systems: All systems reviewed & are unremarkable except as noted in HPI & below No recent fevers or chills Physical Exam Physical Exam: The patient is alert and oriented. Mood and affect appeared normal. He answered all questions appropriately. HEENT: Pupils are equal and reactive to light and accommodation. Extraocular movements are intact. The sclerae are anicteric. Neuro: Cranial nerves intact Neck: Patient's neck is supple. He has palpable carotid pulses bilaterally without bruits on auscultation. There is no evidence of jugular venous distention. The thyroid is not enlarged. Lungs: Clear to auscultation bilaterally. He has good air movement without use of accessory muscles. No rales wheezes or rhonchi. Cardiac: Heart demonstrates a regular rate and rhythm. Normal S1 and S2. No murmurs on examination. Pulses: The patient has palpable radial pulses bilaterally that are equal in intensity Extremities: There was no evidence of hypoperfusion. There is no cyanosis or clubbing. There is no edema. Skin: I did not appreciate any rashes on examination today. Results & Data Vital Signs (Past 12 Hours) Vital Signs Temp Pulse Pulse Resp BP Pulse Ox 11/12/19 16:20 69 11/12/19 15:46 36.9 C 71 20 119/71 100 11/12/19 12:42 36.7 C 59 L 18 123/77 99 11/12/19 11:32 78 18 102/63 100 11/12/19 11:17 78 18 117/63 97 11/12/19 11:02 78 16 100/43 L 96 11/12/19 10:16 37.1 C 86 16 140/77 99 11/12/19 07:48 63 11/12/19 07:29 36.6 C 18 97 Laboratory Results Abnormal Lab Results 11/11/19 11/12/19 11/12/19 19:45 03:48 03:48 WBC 5.82 4.88 RBC 3.43 L 3.37 L Hgb 10.5 L 10.1 L Hct 30.5 L 30.6 L MCV 88.9 90.8 MCH 30.6 30.0 MCHC 34.4 33.0 RDW Std Deviation 41.9 42.7 RDW Coeff of Elder 13.0 13.0 Plt Count 176 181 MPV 10.5 H 10.8 H Immature Gran % (Auto) 0.2 0.0 Neut % (Auto) 60.3 44.0 Lymph % (Auto) 31.1 46.1 [place] % (Auto) 7.2 7.4 Eos % (Auto) 1.0 2.3 Baso % (Auto) 0.2 0.2 Immature Gran # (Auto) 0.01 0.00 Neut # (Auto) 3.51 2.15 Lymph # (Auto) 1.81 2.25 [place] # (Auto) 0.42 0.36 Eos # (Auto) 0.06 0.11 Baso # (Auto) 0.01 0.01 Sodium 141 Potassium 4.1 Chloride 111 H Carbon Dioxide 29 Anion Gap 1.0 L BUN 12 Creatinine 0.92 Est Cr Clr Drug Dosing 113.7 Est GFR ( Amer) 136.4 Est GFR (Non-Af Amer) 117.6 BUN/Creatinine Ratio 13.2 Glucose 90 Calcium 8.0 L 11/12/19 12:10 WBC 7.75 RBC 3.36 L Hgb 10.2 L Hct 30.7 L MCV 91.4 MCH 30.4 MCHC 33.2 RDW Std Deviation 43.2 RDW Coeff of Elder 13.0 Plt Count 170 MPV 10.1 Immature Gran % (Auto) 0.1 Neut % (Auto) 76.8 Lymph % (Auto) 15.5 [place] % (Auto) 7.0 Eos % (Auto) 0.5 Baso % (Auto) 0.1 Immature Gran # (Auto) 0.01 Neut # (Auto) 5.95 Lymph # (Auto) 1.20 [place] # (Auto) 0.54 Eos # (Auto) 0.04 Baso # (Auto) 0.01 Sodium Potassium Chloride Carbon Dioxide Anion Gap BUN Creatinine Est Cr Clr Drug Dosing Est GFR ( Amer) Est GFR (Non-Af Amer) BUN/Creatinine Ratio Glucose Calcium PG Care Time/CCT Total # of Minutes Spent Total Time Spent with Patient: Total time spent is greater than 50% in coordination of care (as documented) at patient's floor/unit and/or counseling patient: Coding Level of Care Code 73583 Inpt Consult Level 4 Diagnoses Second degree atrioventricular block, Mobitz (type) I I44.1
--- NOTE | 2019-11-12 17:37 | Electrocardiogram Report ---
Test Reason : Blood Pressure : / mmHG Vent. Rate : 078 BPM Atrial Rate : 078 BPM P-R Int : 188 ms QRS Dur : 098 ms QT Int : 362 ms P-R-T Axes : 052 073 051 degrees QTc Int : 412 ms Normal sinus rhythm Normal ECG No previous ECGs available Confirmed by Roberto Hagan ([id number]) on 11/12/2019 5:36:56 PM Referred By: REFERRED SELF Confirmed By:Meng Hagan
--- NOTE | 2019-11-12 17:57 | Electrocardiogram Report ---
Test Reason : Blood Pressure : / mmHG Vent. Rate : 067 BPM Atrial Rate : 067 BPM P-R Int : 256 ms QRS Dur : 094 ms QT Int : 378 ms P-R-T Axes : 073 052 038 degrees QTc Int : 399 ms Sinus rhythm with 1st degree A-V block Otherwise normal ECG When compared with ECG of 11-NOV-2019 12:30, (unconfirmed) OH interval has increased Confirmed by Roberto Hagan ([id number]) on 11/12/2019 5:57:01 PM Referred By: REFERRED SELF Confirmed By:Meng Hagan
[2019-11-13] MEDS: PANTOprazole 40 MG in DEXTROSE 5% 100 ML IV SCH ×5 (00:50→21:25)
[2019-11-13 06:05] LABS: Basophils # (auto) 0.02 K/uL (0-0.2); Basophils % (auto) 0.4 %; Eosinophils # (auto) 0.14 K/uL (0-0.5); Hematocrit (blood only) 31.9 % (42-52); Hemoglobin 10.5 g/dL (14.0-18.0); Lymphocytes # (auto) 1.74 K/uL (1.2-3.4); Lymphocytes % (auto) 37.4 %; Mean Corpuscular Hemoglobin 30.1 pg (25-34); Mean Corpuscular Hgb Conc 32.9 g/dL (32-36); Mean Corpuscular Volume 91.4 fL (80-100); Mean Platelet Volume 11.1 fL (7.4-10.4); Monocytes # (auto) 0.41 K/uL (0.11-0.59); Monocytes % (auto) 8.8 %; Neutrophils # (auto) 2.34 K/uL (1.4-6.5); Neutrophils % (auto) 50.4 %; Platelet Count 195 K/uL (130-400); RDW Coefficient of Variation 13.1 % (11.5-14.5); RDW Standard Deviation 42.9 fL (36.4-46.3); Red Blood Count 3.49 M/uL (4.7-6.1); White Blood Count 4.65 K/uL (4.8-10.8)
[2019-11-13 06:58] LABS: Albumin Globulin Ratio 1.2 (0.9-2); Albumin Level 3.1 gm/dl (3.4-5.0); BUN Creatinine Ratio 6.3 (10-20); Bilirubin,Total 0.5 mg/dl (0.2-1); Calcium 8.4 mg/dl (8.5-10.1); Creatinine Clr Calc Pharmacy 103.5 ml/min; Est GFR (African American) 121.8; Est GFR (Non-African American) 105.1; Globulin 2.6 gm/dl (2.5-4.0); Potassium 4.1 mmol/L (3.5-5.1); Total Protein 5.7 gm/dl (6.4-8.2)
[2019-11-13 07:08] LABS: Lyme Ab IgG w/WB Rflx Negative (Negative); Lyme Ab IgM w/WB Rflx Negative (Negative)
--- NOTE | 2019-11-13 10:22 | Gastroenterology Progress Note ---
Date of Service November 13, 2019 Assessment & Plan (1) Gastric ulcer: -Continue IV Protonix gtt for a total of 72 hours after which can convert to Protonix 40 mg BID. -EGD in 8 weeks to assess healing; Our office will arrange this as well as subsequent follow-up. -Continue to monitor H/H. -Await pathology results. Thank you for allowing us to participate in the care of this patient. If you should have further questions or concerns, do not hesitate to call extension [phone] or [phone]. Supervising Physician Co-Signing Physician Notes Agree with NABEEL Spears as above Abd: Soft, NT, ND, +BS Continue current therapy including Protonix gtt for 72 hours, then transition to Protonix 40 mg PO BID Subjective Patient is a 24 yo male with anemia and melena who underwent an EGD on 11/12/2019 that indicated a gastric ulcer with visible vessel. He continues on a PPI drip. He feels well today. H/H stable at 10.5/31.9. He denies further melena. He is tolerating diet advancement. Pathology from EGD is pending. No new complaints at present. Review of Systems Constitutional: no fever and no chills Respiratory: no cough and no dyspnea Cardiovascular: no chest pain Gastrointestinal: no abdominal pain and no heartburn Integumentary: no rash Physical Exam Constitutional: WD/WN, vitals as above Respiratory: normal respiratory effort, lungs clear to auscultation Cardiovascular: RRR, no murmur, no edema Gastrointestinal (Abdomen): normal bowel sounds, soft, nontender, no hepatosplenomegaly Skin: no rashes, warm and dry Psychiatric: A+Ox3, euthymic affect Results & Data Vital Signs (Past 12 Hours) Vital Signs Temp Pulse Pulse Pulse Resp BP BP 11/13/19 07:30 36.9 C 65 18 118/68 11/13/19 02:34 36.5 C 81 18 119/72 11/13/19 00:07 74 11/12/19 22:34 36.8 C 76 16 115/71 Pulse Ox 11/13/19 07:30 95 11/13/19 02:34 96 11/13/19 00:07 11/12/19 22:34 98 PG Care Time/CCT Total # of Minutes Spent Total Time Spent with Patient: Total time spent is greater than 50% in coordination of care (as documented) at patient's floor/unit and/or counseling patient: Coding Level of Care Code 84141 Subs Hosp Care [facility] 3 Diagnoses Gastric ulcer K25.0 Gastric ulcer chronicity: acute Gastric ulcer complication status: with hemorrhage (1) Gastric ulcer Gastric ulcer chronicity: acute Gastric ulcer complication status: with hemorrhage Qualified Code(s): K25.0 - Acute gastric ulcer with hemorrhage
--- NOTE | 2019-11-13 12:22 | Hospitalist Progress Note ---
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 Found to have hemoccult positive stool in the ER. Hgb=11.9, Hct=35.5. Afebrile, hemodynamically stable and doing well with no complaints. * GI Consultation-- appreciate input * EGD on 11/12 with 15mm oozing gastric ulcer found on lesser curvature of the stomach which was injected with epi, hemostasis with ablation of lesion by Dr. Salgado * Continue protonix gtt x 72 hours --> third day 11/14. Zofran prn * Tolerated full liquid diet -- advanced at lunch to regular diet as patient without further melena or n/v. * Continue to monitor CBC -- H/H actually improved today to 10.5/31.9 from low of 10.1/30.6 on 11/12/19 * Follow up biopsy performed for H. pylori testing * Avoid all NSAIDs, ASA, EtOH (2) Acute blood loss anemia: * as above, secondary to GI bleed * now stabilized * follow CBC (3) Melena: * As above (4) Second degree atrioventricular block, Mobitz (type) I: * Initial EKG without abnormality * On telemetry, had what appears to be a Wenkebach around midnight 11/12 -- repeated EKG with prolonged OH, evidence of 1st degree block. No history of syncope * OH interval shortens and has a 1:1 conduction with ambulation while on tele * Cardiology consult -- appreciate input * Lyme negative --> no further evaluation needed as per Cardio - see cardiology note (5) DVT prophylaxis: * Low risk. Encourage ambulation, also with active GI bleeding, no chemical means of anticoagulation Dispo -- will need to continue protonix gtt with posible transition tomorrow and repeat EGD in 8 weeks to assess healing Supervising Physician Co-Signing Physician Notes DORIE Supervision Note: I did not personally see or examine the patient today, but I verified all kapadia points of DORIE Madden's assessment and plan with the following exceptions/additions: None Subjective Patient evaluated at bedside this morning. Feeling better. No further episodes of melena. Denies any nausea or vomiting. Denies abdominal pain. States he has not had a bowel movement since he was admitted. Discussed continuing protonix drip for total of 72 hours before transitioning to oral. Discussed conversation with cardiology and no further work up at this time. All questions/concerns answered. Review of Systems Review of Systems: All systems reviewed & are unremarkable except as noted in HPI & below Constitutional: no fever and no chills Ear, Nose, Mouth, Throat: no sore throat and no dysphagia Respiratory: no cough and no dyspnea Cardiovascular: no chest pain, no palpitations and no edema Gastrointestinal: + constipation; no abdominal pain, no nausea and no vomiting Genitourinary: no dysuria and no urinary frequency Integumentary: no rash and no lesions Physical Exam Constitutional: WD/WN, vitals as above Eyes: PERRL, conjunctivae normal, anicteric sclerae ENMT: external ear and nose normal, oropharynx normal Neck: trachea midline, no thyromegaly Respiratory: normal respiratory effort, lungs clear to auscultation Cardiovascular: RRR, no murmur, no edema Gastrointestinal (Abdomen): Inspection/Auscultation: normal bowel sounds Percussion/Palpation: abdomen soft; no hepatosplenomegaly Musculoskeletal: no cyanosis or clubbing, extremities motor strength 5/5 Skin: no rashes, warm and dry Neurologic: PERRL, EOMI, accommodation nl, no face palsy, no dysarthria Psychiatric: A+Ox3, euthymic affect Lymphatic: no cervical or axillary lymphadenopathy Results & Data ([facility]) Vital Signs (Past 12 Hours) Vital Signs Temp Pulse Pulse Pulse Resp BP BP 11/13/19 08:00 58 L 11/13/19 07:30 36.9 C 65 18 118/68 11/13/19 02:34 36.5 C 81 18 119/72 Pulse Ox 11/13/19 08:00 11/13/19 07:30 95 11/13/19 02:34 96 Laboratory Results 11/13/19 11/13/19 11/13/19 Range/Units 05:22 05:22 05:22 WBC 4.65 L (4.8-10.8) K/uL RBC 3.49 L (4.7-6.1) M/uL Hgb 10.5 L (14.0-18.0) g/dL Hct 31.9 L (42-52) % MCV 91.4 (80-100) fL MCH 30.1 (25-34) pg MCHC 32.9 (32-36) g/dL RDW Std Deviation 42.9 (36.4-46.3) fL RDW Coeff of Elder 13.1 (11.5-14.5) % Plt Count 195 (130-400) K/uL MPV 11.1 H (7.4-10.4) fL Immature Gran % (Auto) 0.0 % Neut % (Auto) 50.4 % Lymph % (Auto) 37.4 % [place] % (Auto) 8.8 % Eos % (Auto) 3.0 % Baso % (Auto) 0.4 % Immature Gran # (Auto) 0.00 (0.00-0.02) K/uL Neut # (Auto) 2.34 (1.4-6.5) K/uL Lymph # (Auto) 1.74 (1.2-3.4) K/uL [place] # (Auto) 0.41 (0.11-0.59) K/uL Eos # (Auto) 0.14 (0-0.5) K/uL Baso # (Auto) 0.02 (0-0.2) K/uL Sodium 143 (136-145) mmol/L Potassium 4.1 (3.5-5.1) mmol/L Chloride 110 H (98-107) mmol/L Carbon Dioxide 28 (21-32) mmol/L Anion Gap 5.0 (3-11) BUN 6 L D (7-18) mg/dl Creatinine 1.01 (0.6-1.4) mg/dl Est Cr Clr Drug Dosing 103.5 ml/min Est GFR ( Amer) 121.8 Est GFR (Non-Af Amer) 105.1 BUN/Creatinine Ratio 6.3 L (10-20) Glucose 90 (70-99) mg/dl Calcium 8.4 L (8.5-10.1) mg/dl Total Bilirubin 0.5 (0.2-1) mg/dl AST 8 L (15-37) U/L ALT 28 (12-78) U/L Alkaline Phosphatase 60 (45-117) U/L Total Protein 5.7 L (6.4-8.2) gm/dl Albumin 3.1 L (3.4-5.0) gm/dl Globulin 2.6 (2.5-4.0) gm/dl Albumin/Globulin Ratio 1.2 (0.9-2) Lyme Disease IgG Ab Negative (Negative) Lyme Disease IgM Ab Negative (Negative) PG Care Time/CCT Total # of Minutes Spent Total Time Spent with Patient: Total time spent is greater than 50% in coordination of care (as documented) at patient's floor/unit and/or counseling patient: Coding Level of Care Code 57396 Subseq Hosp Care Lvl 2 Diagnoses UGIB (upper gastrointestinal bleed) K92.2 Acute blood loss anemia D62 Melena K92.1 Second degree atrioventricular block, Mobitz (type) I I44.1 DVT prophylaxis Z29.9
[2019-11-14] MEDS: PANTOprazole 40 MG in DEXTROSE 5% 100 ML IV SCH ×3 (02:16→11:29)
[2019-11-14 06:19] LABS: Hematocrit (blood only) 33.3 % (42-52); Hemoglobin 11.2 g/dL (14.0-18.0); Mean Corpuscular Hemoglobin 30.2 pg (25-34); Mean Corpuscular Hgb Conc 33.6 g/dL (32-36); Mean Corpuscular Volume 89.8 fL (80-100); Mean Platelet Volume 10.4 fL (7.4-10.4); Platelet Count 184 K/uL (130-400); RDW Standard Deviation 42.3 fL (36.4-46.3); Red Blood Count 3.71 M/uL (4.7-6.1); White Blood Count 4.93 K/uL (4.8-10.8)
[2019-11-14 06:51] LABS: BUN Creatinine Ratio 10.2 (10-20); Calcium 8.7 mg/dl (8.5-10.1); Creatinine Clr Calc Pharmacy 99.6 ml/min; Est GFR (African American) 116.2; Est GFR (Non-African American) 100.3; Potassium 3.9 mmol/L (3.5-5.1)
[2019-11-14 06:56] LABS: Ferritin 36.2 ng/ml (8-388)
[2019-11-14] MEDS ORDERED: POLYETHYLENE (MIRALAX) 17 GM PACK PO STA (12:12)
--- NOTE | 2019-11-14 15:28 | Discharge Summary ---
Date of Service November 14, 2019 Admission HPI Per Admitting Provider Zheng Adorno is a pleasant 24yo C male with no significant past medical or surgical history. He developed abdominal pain, bloating and gas approximately two weeks ago. He was seen at [facility] and given a prescription for Protonix. Over the last 2-3 days he developed body aches, weakness, intermittent dizziness, SOB and black/tarry stools. He had some nausea with one episode of non-bloody/non-bilious emesis. He returned to [facility] and was subsequently sent to the ER. Otherwise, patient denies fevers, chest pain, diarrhea, dysuria. Afebrile, hemodynamically stable in ER. FOBT performed and found to be positive for occult blood. ER Course: Protonix bolus and drip, NSS x 1 liter Admission Exam Per Admitting Provider General: patient resting comfortably, NAD, non-toxic in appearance, AA&O x 4 Skin: warm, dry, intact, no rashes or lesions HEENT: NC/AT, PERRL, EOMI, anicteric sclera, conjunctiva without injection, external ear normal to inspection and nontender, nares patent, moist mucus membranes, dentition intact, no oropharyngeal lesions, neck supple, trachea midline, no LAD, no thyromegaly, no JVD Heart: +S1/S2, regular, no m/r/g Lungs: equal air entry bilaterally, no rales/rhonchi/wheezes Abd: +BS, soft, ND, +epigastric discomfort, no rebound/guarding/peritoneal signs, no masses/organomegaly/ascites Ext: warm, 2+ pulses in UE/LE bilaterally, no clubbing/cyanosis or edema Neuro: nonfocal, patient AA&O x 4, speech intact, no facial droop, moving all extremities on command with equal strength 5/5 Principal Diagnosis Bleeding Gastric Ulcer, Melena Discharge Exam Constitutional WD/WN, vitals as above Eyes PERRL, conjunctivae normal, anicteric sclerae ENMT external ear and nose normal, oropharynx normal Neck trachea midline, no thyromegaly Respiratory normal respiratory effort, lungs clear to auscultation Cardiovascular RRR, no murmur, no edema Gastrointestinal (Abdomen) Inspection/Auscultation: normal bowel sounds Percussion/Palpation: abdomen soft; no hepatosplenomegaly Musculoskeletal no cyanosis or clubbing, extremities motor strength 5/5 Skin no rashes, warm and dry Neurologic PERRL, EOMI, accommodation nl, no face palsy, no dysarthria Psychiatric A+Ox3, euthymic affect Lymphatic no cervical or axillary lymphadenopathy Discharge Data Allergies Allergy/AdvReac Type Severity Reaction Status Date / Time milk Allergy Intermediate diarrhea ~ Unverified 11/11/19 13:44 churning stomach Consultations 11/11/19 13:28 ED Decision to Admit Stat 11/11/19 15:00 Consult Gastroenterology Routine 11/12/19 15:47 Consult Cardiology Routine Procedures Performed Operation Date: 11/12/19 10:35 Actual Procedures p EGD Hemostasis(Not Applicable) - Bertin Pritchard Case, DO s EGD Biopsy Cytology(Not Applicable) - Bertin Pritchard Case, DO Hospital Course (1) UGIB (upper gastrointestinal bleed): 24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 FHx hemachromatosis. Found to have hemoccult positive stool in the ER. Hgb=11.9, Hct=35.5. Afebrile, hemodynamically stable. * GI Consultation with EGD on 11/12 which revealed a 15mm oozing gastric ulcer found on lesser curvature of the stomach which was injected with epi, hemostasis with ablation of lesion by Dr. Salgado. * Protonix gtt x 72 hours then transitioned to 40mg PO BID * H/h reached a low of 10.1/30.6 but improving. 11.2/33 at discharge. * H. pylori testing negative * Avoid all NSAIDs, ASA, EtOH * Repeat EGD as outpatient in [address] Salgado on January 11 (2) Acute blood loss anemia: * as above, secondary to GI bleed. Stabilized (3) Melena: * As above (4) Second degree atrioventricular block, Mobitz (type) I: * Initial EKG without abnormality. On telemetry, had what appeared to be a Wenkebach around midnight 11/12 -- repeated EKG with prolonged HI, evidence of 1st degree block. No history of syncope. Lyme negative. * HI interval shortens and has a 1:1 conduction with ambulation while on tele. Cardiology consult with no further work up recommended (5) DVT prophylaxis: * Low risk. Encouraged ambulation * Chemical prophylaxis held in setting of active GIB Discharged home with family Total Time Total Time Spent Total Time Spent (In Minutes): 60 Discharge Plan Discharge Items Patient Disposition: Home - Self-Care Reason For Visit: UGIB Discharge Diagnosis: Upper GI Bleed -- bleeding ulcer Condition on Discharge: Good Goals: You have been hospitalized for an urgent problem which required surgery. During your stay at [facility], we have made an effort to correct the problem that brought you to the hospital while keeping you as comfortable as possible. Surgery and medications were used to bring your condition under control and your discharge instructions will include directions for any medications you should take after leaving the hospital. Please make sure to follow the advice of your surgeon regarding follow up with the surgeon and with your primary care provider. Activity: Resume your previous activity Non-emergency contact: Primary Care Provider Call non-emergency contact if: you have any medication questions and your symptoms worsen Follow-up/Referrals: Bertin Salgado DO [Physician] - None (Follow up for EGD in 8 weeks) PCP,NO [Primary Care Provider] - Diet: Regular and Lactose Intolerant Addtl Attending Provider Instructions: You had an EGD (scope) while you were hospitalized which found a bleeding ulcer. Intervention was performed to stop the bleeding and you were continued on a Protonix IV infusion. It is determined that after the 72 hours you are to be transitioned to oral Protonix pills, twice daily. A prescription has been sent. You may take the first dose tonight. Dr Salgado's office will set up a repeat scope as an outpatient in the next 8 weeks to assess healing. If you do not hear from them in the next week, please call their office at [phone]. You should avoid NSAIDs (ibuprofen/motrin/advil) type products and aspirin during this time as this may worsen bleeding. You should also avoid alcohol during this period of time. Please return to the emergency room if you have any further episodes of bloody diarrhea or darkened stools, or worsening abdominal pain. Please follow up with your primary care provider/[facility] in the next week. It has been a pleasure being a part of the medical team providing for you while you have been hospitalized. Take care! Pending Studies at Discharge: No Stand-Alone Forms: My [facility], Work/School Release (Inpt) Medications and DC Order Prescriptions: New pantoprazole 40 mg Tablet,Delayed Release (Dr/Ec) 40 mg PO BID 30 Days Qty: 60 RF: 1 Discontinued pantoprazole 40 mg Tablet,Delayed Release (Dr/Ec) 40 mg PO QAM RF: 0 Discharge Orders: Discharge Order (Routine); Ordered 11/14/19 Ordered By: Sharmin North Admission Data Admit Date/Time: 11/12/19 14:46 Attending Provider: Sharmin North Admit Provider: Miladis Apodaca Primary Care Provider: PCP,NO Other Providers: Miladis Apodaca ; Bertin Salgado ; Guero Hagan Other Interventions: Discharge Summary Assessment (RN) Last Done: 11/14/19 17:20 DC Date/Time DO NOT enter until pt leaves facility: 11/14/19 18:10 Coding Level of Care Code D/C Day Management >30 mins Diagnoses UGIB (upper gastrointestinal bleed) K92.2 Acute blood loss anemia D62 Melena K92.1 Second degree atrioventricular block, Mobitz (type) I I44.1 DVT prophylaxis Z29.9
[2019-11-14] MEDS ORDERED: PANTOprazole 40 MG TAB PO SCH (21:00)
== END 2019-11-14 18:10 | disposition home or self-care (01) ==
LOC: ED 12:01 → 2N 12:01 → SUATTDRO 13:40 → 2N 14:18